=== PATIENT | male | born 1940 | race Caucasian/White ===

== ENCOUNTER → 2017-06-20 | Outpatient (CLI) | payer BC ==
[~2017-06-20] MED LIST: ASPI81TA28 PO; ATOR10TA82 PO; MULT-506 PO; OMEG10007 PO; OMEP20TA PO
[2017-06-20 09:54] LABS: ESTIMATED AVERAGE GLUCOSE 117 mg/dl; HA1C FLAG Normal (Normal)
[2017-06-20 10:02] LABS: ALT/SGPT 28 U/L (12-78); AST/SGOT 18 U/L (15-37); BLOOD UREA NITROGEN 16 mg/dl (7-18); BUN/CREATININE RATIO 16.4 (10-20); CALCIUM 8.8 mg/dl (8.5-10.1); CARBON DIOXIDE 27 mmol/L (21-32); CHLORIDE 105 mmol/L (98-107); CHOLESTEROL 158 mg/dl (0-200); CREATININE 0.95 mg/dl (0.60-1.40); GLUCOSE 91 mg/dl (70-99); SODIUM 141 mmol/L (136-145); TRIGLYCERIDES 55 mg/dl (0-150); VERY LOW DENSITY LIPOPROT CALC 11 mg/dl
[2017-06-20 10:07] LABS: CHOLESTEROL/HDL RATIO 3.4; HDL CHOLESTEROL 47 mg/dl; LDL CHOLESTEROL CALCULATED 100 mg/dl; PROSTATE SPECIFIC ANTIGEN 0.278 ng/ml (0.000-4.000)
== END | disposition home or self-care (01) ==
LOC: C.LAB1850 08:26
PROVIDERS: ATTEND Internal Medicine
DX: R73.01 Impaired fasting glucose (principal); E78.5 Hyperlipidemia, unspecified; Z12.5 Encounter for screening for malignant neoplasm of prostate

== ENCOUNTER 2017-11-08 12:03 | Emergency (ER) | payer BC ==
[~2017-11-08] VITALS: Ht 180.3 cm; Wt 79.0 kg
[2017-11-08 12:14] VITALS: TEMP 36.4; Ht 180.3 cm; Wt 79.0 kg
[2017-11-08] MEDS ORDERED: IBUP-103 PO (12:29)
--- NOTE | 2017-11-08 12:38 | DIAGNOSTIC IMAGING REPORT ---
L FOOT MIN 3 VIEWS ROUTINE CLINICAL HISTORY: 77 years-old Male presenting with L foot erythema and edema, lateral to 5th distal metatarsal. TECHNIQUE: Frontal, oblique, and lateral views of the left foot were obtained. COMPARISON: None. FINDINGS: Linear radiodensity immediately lateral to the fifth metatarsal head consistent with a retained foreign body. No acute osseous fracture or malalignment. Soft tissue swelling noted over the lateral aspect of the forefoot. No advanced degenerative changes. IMPRESSION: Retained foreign body at the site of clinical concern immediately lateral to the head of the fifth metatarsal. The report will be called/faxed according to standard departmental protocol. Electronically signed by: Marek Navas M.D. 11/08/2017 12:37 PM Dictated Date/Time: 11/08/2017 12:35 PM
[2017-11-08] MEDS ORDERED: LIDOCAINE/EPINEPHRINE 1% 20 ML VIAL INFIL STA (12:52)
[2017-11-08] MEDS ORDERED: DIPHTHERIA/TETANUS/PERTUSSIS 0.5 ML SYR/VIAL IM. ONE (13:00)
--- NOTE | 2017-11-08 13:53 | DIAGNOSTIC IMAGING REPORT ---
L FOOT MIN 3 VIEWS ROUTINE CLINICAL HISTORY: 77 years-old Male presenting with L foot foreign body, post removal. TECHNIQUE: Frontal, oblique, and lateral views the left foot were obtained. COMPARISON: Radiographs from earlier the same day. FINDINGS: Interval removal of the radiopaque foreign body at the head of the fifth metatarsal. No residual foreign body. No acute fracture or malalignment. No advanced degenerative change. No radiographic soft tissue abnormality. IMPRESSION: No residual foreign body at the head of the metatarsal. Electronically signed by: Marek Navas M.D. 11/08/2017 1:52 PM Dictated Date/Time: 11/08/2017 1:51 PM
[2017-11-08] MEDS ORDERED: CEPH500C PO (14:08)
--- NOTE | 2017-11-08 14:08 | EMERGENCY ROOM VISIT NOTE ---
ED Visit Note First contact with patient: 12:18 Patient was seen by our PA/PEDIATRIC PHYSICAL THERAPY ASSISTANT. I was involved in the patient's care and did evaluate the patient myself. I was involved in the care throughout the ER stay. The left foot foreign body was removed, the removal of the debris was confirmed by film. Antibiotics are indicated as there is some redness present at the insertion site. Patient is being discharged with outpatient follow-up.
--- NOTE | 2017-11-08 14:09 | EMERGENCY ROOM VISIT NOTE ---
History First contact with patient: 12:18 Chief Complaint: FOOT PAIN Stated Complaint: PAIN IN LEFT FOOT History of Present Illness The patient is a 77 year old male who presents to the Emergency Room via private vehicle accompanied by female with complaints of "pain in left foot". The patient states that he has had pain on the left lateral aspect of his distal foot for the past 2 days. He states that there is no injury he is aware of but there is no redness. He also notes slight swelling. He states that the only potential cause of this is he was grinding metal this past with a wire brush. He notes that he was wearing tennis shoes at that time. He rates the overall pain as a 7/10. He is unsure of his tetanus status. He denies any fevers or chills. Review of Systems A complete 6-point Review of Systems was discussed with the patient, with pertinent positives and negatives listed in the History of Present Illness. All remaining Review of Systems questions can be considered negative unless otherwise specified. Past Medical/Surgical History Medical Problems: (1) Hyperlipidemia Family History FHx: cancer FHx: heart disease Social History Smoking Status: Never Smoker Alcohol Use: occasionally Marital Status: Housing Status: lives with significant other Current/Historical Medications Scheduled Aspirin (Aspirin Ec), 81 MG PO QAM Atorvastatin (Lipitor), 10 MG PO QAM Cephalexin Monohydrate (Keflex), 500 MG PO TID Fish Oil ([place]-3), 1 CAP PO QAM Ibuprofen Tab (Advil), 200 MG PO UD Multivitamin (Multivitamin), 1 TAB PO QAM Omeprazole (Omeprazole), 20 MG PO QAM Physical Exam Vital Signs Date Time Temp Pulse Resp B/P (MAP) Pulse Ox O2 Delivery O2 Flow Rate FiO2 11/08/17 14:12 57 18 151/63 95 Room Air 11/08/17 12:14 36.4 66 16 138/76 99 Room Air Physical Exam VITAL SIGNS - Vital signs and nursing notes were reviewed. Stable. Afebrile. GENERAL -77-year-old male appearing his stated age who is in no acute distress. Communicates well with provider and answers questions appropriately. SKIN -there is distal left foot tenderness, erythema and edema on the lateral aspect. There is a small punctate center concerning for foreign body. Erythema is localized in a 4 cm in diameter region surrounding this likely foreign body area. EXTREMITIES -tenderness over the left lateral and distal foot. It is just lateral to the left fifth digit joint. +5/5 strength noted in UE/LE bilaterally. Medical Decision & Procedures ER Provider Diagnostic Interpretation: [~ rep ct add3]] L FOOT MIN 3 VIEWS ROUTINE CLINICAL HISTORY: 77 years-old Male presenting with L foot erythema and edema, lateral to 5th distal metatarsal. TECHNIQUE: Frontal, oblique, and lateral views of the left foot were obtained. COMPARISON: None. FINDINGS: Linear radiodensity immediately lateral to the fifth metatarsal head consistent with a retained foreign body. No acute osseous fracture or malalignment. Soft tissue swelling noted over the lateral aspect of the forefoot. No advanced degenerative changes. IMPRESSION: Retained foreign body at the site of clinical concern immediately lateral to the head of the fifth metatarsal. The report will be called/faxed according to standard departmental protocol. Electronically signed by: Marek Navas M.D. 11/08/2017 12:37 PM Dictated Date/Time: 11/08/2017 12:35 PM . L FOOT MIN 3 VIEWS ROUTINE CLINICAL HISTORY: 77 years-old Male presenting with L foot foreign body, post removal. TECHNIQUE: Frontal, oblique, and lateral views the left foot were obtained. COMPARISON: Radiographs from earlier the same day. FINDINGS: Interval removal of the radiopaque foreign body at the head of the fifth metatarsal. No residual foreign body. No acute fracture or malalignment. No advanced degenerative change. No radiographic soft tissue abnormality. IMPRESSION: No residual foreign body at the head of the metatarsal. Electronically signed by: Marek Navas M.D. 11/08/2017 1:52 PM Dictated Date/Time: 11/08/2017 1:51 PM Medications Administered Medications (Trade) Dose Ordered Sig/Brandi Route Start Time Stop Time Status Last Admin Dose Admin Diphtheria/ Pertussis/Tetanus Vacc (Adacel Inj) 0.5 ml ONCE ONCE IM. 11/08/17 13:00 11/08/17 13:01 DC 11/08/17 13:22 0.5 ML Medical Decision Patient was seen and evaluated as above in room D5. Review was performed of nursing notes and vital signs. After obtaining a thorough history and physical examination the above work up was performed. X-ray was obtained. Retained foreign body noted. Benefit versus risk was discussed with the patient. Region was prepped in the typical sterile fashion using Betadine. I then used the side of an 18-gauge beveled needle to gently debride away the callus region. I then struck a possible pocket which drained purulent material. It was yellow in nature. I then utilized forceps to remove the foreign body. The region was cleansed. Repeat x-ray reveals no retained foreign body. He will be placed on Keflex for the suspected cellulitic infection. He is to follow with the family doctor or return with worsening. Region was dressed with a bacitracin dressing. The patient was educated upon management, had questions answered prior to discharge, and was discharged home in good condition. Case was discussed with the attending physician who also personally evaluate the patient. I attest that I have personally reviewed the patient medication list. I attest that I have reviewed the patient's blood pressure and it was found to be elevated likely secondary to situation. In the evaluation and treatment of this patient the following differential diagnoses were entertained: Retained foreign body, cellulitis, abscess, among others. Impression Primary Impression: Foreign body in foot Additional Impression: Cellulitis Departure Information Dispostion Home / Self-Care Condition GOOD Prescriptions Cephalexin Monohydrate (Keflex) 500 Mg Cap 500 MG PO TID for 7 Days, #21 CAP Prov: Sung Zuleta PA-C 11/08/17 Referrals Pro,Jaime Whitman M.D. (PCP) Patient Instructions My [facility] Additional Instructions You were seen in the emergency department for a retained foreign body in your left foot. This was removed. Please take Keflex 1 tablet every 8 hours for 7 days. This is to help the infection. Please return with any new/concerning symptoms. Please call your family doctor to schedule follow-up to evaluate your infection. Please keep the area covered with antibiotic ointment for the next few days. Problem Qualifiers Primary Impression: Foreign body in foot Laterality: left
[2017-11-08 14:12] VITALS: BP 151/63; PULSE 57; O2SAT 95
[2017-11-09] MEDS ORDERED: DOXY-300 PO (15:14)
== END 2017-11-08 14:18 | disposition home or self-care (01) ==
LOC: C.EDB 12:05 → C.EDD 14:18
DX: S91.342A Puncture wound with foreign body, left foot, initial encounter (principal); L03.116 Cellulitis of left lower limb; W45.8XXA Other foreign body or object entering through skin, initial encounter; Y92.9 Unspecified place or not applicable; E78.5 Hyperlipidemia, unspecified; Z80.9 Family history of malignant neoplasm, unspecified; Z82.49 Family history of ischemic heart disease and other diseases of the circulatory system; Z79.82 Long term (current) use of aspirin; Z79.899 Other long term (current) drug therapy

== ENCOUNTER 2017-11-09 14:08 | Emergency (ER) | payer BC ==
[~2017-11-09] VITALS: Ht 180.3 cm; Wt 81.0 kg
[~2017-11-09 14:08] MED LIST changes: +CEPH500C PO; +IBUP-103 PO
[2017-11-09 14:10] VITALS: TEMP 36.5; Ht 180.3 cm; Wt 81.0 kg
--- NOTE | 2017-11-09 15:10 | EMERGENCY ROOM VISIT NOTE ---
ED Visit Note First contact with patient: 14:21 Patient was seen by our PA/SUPERVISOR DUMPING. I was involved in the patient's care and did evaluate the patient myself. I was involved in the care throughout the ER stay. The patient presents today for a wound recheck. The redness has spread, no fever or systemic symptoms. He is going to receive a dose of Rocephin and then will have an additional antibiotic, doxycycline, added. He will have the foot rechecked again in 24 hours.
[2017-11-09] MEDS ORDERED: DOXY-300 PO (15:14)
[2017-11-09] MEDS ORDERED: CEFTRIAXONE SOD 350MG/ML 1 GM VIAL IM STA (15:15)
--- NOTE | 2017-11-09 15:18 | EMERGENCY ROOM VISIT NOTE ---
History First contact with patient: 14:21 Chief Complaint: WOUND RECHECK Stated Complaint: WOUND RECHECK LEFT FOOT Nursing Triage Summary: here for wound recheck on foot after having wire removed History of Present Illness The patient is a 77 year old male who presents to the Emergency Room via private vehicle with complaints of "will recheck left foot". The patient states that he was seen here yesterday and had the wire taken out of his foot. He states that now the redness is worse but the pain is less. He rates the overall pain as a 4/10. He has been taking the Keflex. He notes he took 2 doses yesterday and 1 dose this morning. He denies any fevers, chills or any other complaints. He notes he has been trying to limit weightbearing on the left foot but is ambulating as necessary. Review of Systems A complete 6-point Review of Systems was discussed with the patient, with pertinent positives and negatives listed in the History of Present Illness. All remaining Review of Systems questions can be considered negative unless otherwise specified. Past Medical/Surgical History Medical Problems: (1) Hyperlipidemia Family History FHx: cancer FHx: heart disease Social History Smoking Status: Never Smoker Alcohol Use: occasionally Marital Status: Housing Status: lives with significant other Current/Historical Medications Scheduled Aspirin (Aspirin Ec), 81 MG PO QAM Atorvastatin (Lipitor), 10 MG PO QAM Cephalexin Monohydrate (Keflex), 500 MG PO TID Doxycycline (Monohydrate) (Doxycycline), 100 MG PO BID Fish Oil ([place]-3), 1 CAP PO QAM Ibuprofen Tab (Advil), 200 MG PO UD Multivitamin (Multivitamin), 1 TAB PO QAM Omeprazole (Omeprazole), 20 MG PO QAM Physical Exam Vital Signs Date Time Temp Pulse Resp B/P (MAP) Pulse Ox O2 Delivery O2 Flow Rate FiO2 11/09/17 15:41 56 20 166/77 97 11/09/17 14:10 36.5 68 16 143/72 97 Physical Exam VITAL SIGNS - Vital signs and nursing notes were reviewed. Stable. Afebrile. GENERAL -77-year-old male appearing his stated age who is in no acute distress. Communicates well with provider and answers questions appropriately. SKIN -there is extending erythema overlying the distal left lateral area of the patient's left foot. This has now progressed to the left half of the anterior foot. No lymphangitic streaking. No drainage. No fluctuance. EXTREMITIES - No clubbing or peripheral cyanosis. Skin changes as above. Minimal tenderness. No bony deformity. Full range of motion. He is neurovascularly intact in left lower extremity. Medical Decision & Procedures Medications Administered Medications (Trade) Dose Ordered Sig/Brandi Route Start Time Stop Time Status Last Admin Dose Admin Ceftriaxone Sodium (Rocephin Im) 1,000 mg NOW STAT IM 11/09/17 15:15 11/09/17 15:16 DC 11/09/17 15:28 1,000 MG Medical Decision Patient was seen and evaluated as above in room D5. Review was performed of nursing notes and vital signs. After obtaining a thorough history and physical examination it was evident that the patient was experiencing worsening cellulitis. There is no fluctuance or evidence of abscess. The region where the wire was removed by myself yesterday is improving. I suspect that the patient has not had enough time for the antibiotic take effect, but to be cautious he will be given 1 g of Rocephin here IM, and doxycycline added for additional micro-coverage. He is to have this rechecked tomorrow. This is either going to be here or with the family doctor. At this time I believe outpatient management is still appropriate. He was educated upon worrisome symptoms which to return. The patient was educated upon management, had questions answered prior to discharge, and was discharged home in good condition. Case was discussed with the attending physician who also personally evaluate the patient.. I attest that I have personally reviewed the patient medication list. I attest that I have reviewed the patient's blood pressure and it was found to be elevated likely secondary to situation. He is to follow with the family doctor for wound recheck. In the evaluation and treatment of this patient the following differential diagnoses were entertained: Worsening cellulitis, sepsis, retained foreign body , among others. Impression Primary Impression: Encounter for wound re-check Additional Impression: Cellulitis Departure Information Dispostion Home / Self-Care Condition GOOD Prescriptions Doxycycline (Monohydrate) (Doxycycline) 100 Mg Cap 100 MG PO BID for 10 Days, #20 TABS Prov: Sung Zuleta PA-C 11/09/17 Referrals Jaime Luna M.D. (PCP) Patient Instructions My [facility] Additional Instructions You were seen in the emergency department for an infection of your left foot. At this time I recommend continuing the first antibiotic which is Keflex. You received an injection here of another antibiotic. You have been prescribed Doxycycline to be taken as prescribed. This is a second antibiotic. Please take this with the first. All antibiotics have the potential to cause diarrhea. Stop this medication and contact a medical provider if you were to develop any significant adverse side effects including: wheezing, shortness of breath, passing out, vomiting, or a diffuse rash. Always take antibiotics as directed and COMPLETE the ENTIRE course regardless of the improvement of your symptoms. Protect yourself with sunscreen while on this antibiotic as it increases your skin's sensitivity to the light and cause bad sunburns. In addition, you should be sure to take this pill after eating. Make sure the pill is completely swallowed as this medication can cause irritation to the lining of the esophagus. Do NOT drink milk or eat anything with large amounts of Calcium in them 1 hour prior to taking this medication as this will decrease the effectiveness of the medication. Please call the family doctor to schedule follow-up for wound recheck tomorrow. (Dr. Luna) If you are unable to be seen by them please return here for reevaluation. Please return with any new/concerning symptoms Problem Qualifiers
[2017-11-09 15:41] VITALS: BP 166/77; PULSE 56; O2SAT 97
== END 2017-11-09 15:46 | disposition home or self-care (01) ==
LOC: C.EDB 14:08 → C.EDD 15:46
DX: L03.116 Cellulitis of left lower limb (principal); E78.5 Hyperlipidemia, unspecified

== ENCOUNTER 2024-06-17 14:17 | Observation (INO) ==
--- NOTE | 2024-06-17 14:23 | Emergency Department Note ---
Impression & Plan Bradycardia, Dizziness, Nausea & vomiting, Heart block AV second degree ED Provider Note NAME: BRETT SCHWARTZ AGE: 83 SEX: M : 1940 ARRIVES VIA: Ambulance INFORMANT: Patient, ED PROVIDER(S): Suresh Pittman MD CHIEF COMPLAINT: Dizziness, headache, vomiting MEDICAL DECISION MAKING: Patient presents due to concern for nausea vomiting and dizziness. Patient states that he had gait and balance issues but denies any vertigo or spinning. Patient did have a CT of the head and CT angiography of the head and neck performed given the patient's reported difficulty with ambulation. IV was established and blood work was obtained patient was given meclizine as well as IV fluids. Patient still had significant vomiting and the patient was ordered IV Compazine. During the time of his vomiting the patient reportedly had bradycardia into the 20s. Patient had improvement in his heart rate. Review of his prior records shows the patient has been bradycardic in the past. The patient does not take anything for rate control. Patient did get a CAT scan but upon being laid down patient reportedly had associated bradycardia and subsequent nausea and vomiting. Patient was brought back here and I did speak with the on-call hat finisher Dr. Day. Atropine initially ordered but held. On reevaluation of the patient the patient states that he has not had any vertiginous symptoms feels well currently at the bedside. Will defer any CT head or CT angiography of the head and neck as I am concerned that the patient's symptoms of his gait issues are secondary to his nausea vomiting as well as bradycardia. Pacer pads were placed on the patient. The patient does not complain of any vertigo. The patient has good [id number] and no drift of any extremity good [id number]. Subsequently did speak the on-call hospitalist service after discussing patient's case with Dr. Mooney and the patient was admitted by Dr. Thomas. Discussion w/ other healthcare providers: Dr. Mooney cardiology Dr. Thomas inpatient medicine service Prior /Outside records reviewed: I reviewed a part of her primary care visit note from April 07, [address] Luna history of hyperlipidemia bradycardia reflux impaired fasting glucose inguinal hernia. Reported stable bradycardia in the 50s without symptoms. Differential diagnosis: Benign positional vertigo, dehydration, hypovolemia, anemia, infection, hypoglycemia, electrolyte abnormalities, arrhythmia, tox among others were considered. Diagnostics, as interpreted by me: ECG: Sinus bradycardia rate of 53, first-degree AV block prolonged MI, normal axis T wave inversion in aVL no ST elevations. Rhythm strip reviewed and interpreted concern for second-degree heart block Repeat EKG interpreted by myself Sinus bradycardia with first-degree AV block rate of 43 prolonged MI normal QRS duration normal axis no ST elevations. Cardiac monitoring: An order was placed for continuous cardiac monitoring. The monitor shows a rate of 53 with sinus rhythm. Patient was placed on pulse oximetry Medical decision rules: None Imaging studies: I informally interpreted the patient's chest x-ray does not show obvious pneumonia or pneumothorax with formal report to follow. HPI: Patient presents due to concern for lightheadedness and gait and balance issues. Patient states that he was nearing some wood that he was in a put on theof a car. The patient denies any fume exposure. Patient states that he had a little bit of headache and some associated nausea and vomiting. Patient denies any spinning feeling sensation or vertigo but states that he was lightheaded and had difficulty with walking to where he had to hold onto things for balance. Patient denies any falls or trauma. He did receive Zofran around with mild improvement in symptoms. He only has a very mild headache currently. Patient takes baby aspirin but no other blood thinners. Patient denies any recent changes in elevation or hearing loss no tinnitus. Patient denies any numbness tingling or focal weakness and no prior history of stroke or mini stroke. PAST MEDICAL HISTORY: See Below PAST SURGICAL HISTORY: See Below SOCIAL HISTORY: See Below HOME MEDICATIONS: See Below ALLERGIES: See Below VITALS: See Below PHYSICAL EXAMINATION: GENERAL: NAD, non-toxic. EYE EXAM: Normal conjunctiva. PERRL, no anisocoria and EOM's grossly intact w/o pain. No nystagmus noted. OROPHARYNX: Moist mucus membranes, grossly normal dentition. NECK: Trachea midline, no stridor. Supple, no nuchal rigidity, no adenopathy, non-tender. No signs of meningismus. FROM of the neck with good chin to chest and neck extension. LUNGS: Clear to auscultation. Normal chest wall mechanics. HEART: NSR, no MRG. ABDOMEN: Abdomen soft, non-tender, no masses, no rebound or guarding. BACK: No CVA TTP. SKIN: No rashes and no bruising. UPPER EXTREMITIES: Upper extremities are grossly normal. LOWER EXTREMITIES: Grossly normal, no edema. NEURO EXAM: A&O x3, cranial nerves II-XII grossly intact, normal speech, moves all 4 extremities. Good [id number], no drift no sensory deficits. Past Med/Surg History Problem List (Updated 06/17/24 @ 21:13 by Suresh Pittman MD) Ambulatory dysfunction First degree AV block Nausea & vomiting (Acute) Dizziness (Acute) Heart block AV second degree (Acute) Dysequilibrium H/O right inguinal hernia repair (04/17/23) Right Open Inguinal Hernia Repair with Mesh(Right) - Chau Victor, Hypertension stable per PCP; low sodium diet and pt monitoring BP Prediabetes pt monitoring diet; Ha1c 01/21/23: 5.6% Current use of proton pump inhibitor Inguinal hernia Inguinal bulge Pain, abdominal, RLQ Hernia Cerumen impaction Skin lesion Sensorineural hearing loss (SNHL) of left ear with restricted hearing of right ear Colon cancer screening Encounter for pre-operative examination Impaired fasting glucose (Acute) Laryngopharyngeal reflux (Acute) Bradycardia (Acute) runs 50s-60s per pt ; stable per PCP: 03/2023 EKG first degree AV block without changes Hyperlipidemia stable on statin per PCP Medical History Hx of syncope x 2 occurrences; most recent episdoe 11/2018; workup wnl per pt ([facility]), no current issues since 2019 Hearing loss "Age related" Hypertension Pt Denies - "never had a significantly high BP" Hyperlipidemia Bradycardia "Sometimes drops to 50's." Does not follow with cardio History of COVID-22 Mar 2022: mild. 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 pt declines neuro referral. 02/2022 doppler: Carotids <50% stenosis b/l ICA GERD (gastroesophageal reflux disease) stable on omeprazole Surgical History History of right cataract surgery History of left cataract surgery 02/25/24 Hx of right inguinal hernia repair 2022 History of tonsillectomy Youth History of appendectomy Youth History of colonoscopy 2020 Family History Father , age 63 Myocardial infarction Brother Melanoma Lung cancer Brother Lung cancer Other Family history non-contributory No family history of adverse response to anesthesia Denies family history of Ovarian cancer Prostate cancer Breast cancer Colorectal cancer Social History Smoking Status: Never smoker Second Hand Exposure: No; Do You Dip or Chew Tobacco: No; Hx Alcohol Use: Yes Alcohol type: beer and wine Alcohol Intake Frequency: 4 or More x per/Week Hx Substance Use: No Preferred Language: Azerbaijani Communication Ability: Effective Visual Impairment: No Limitations Hearing Ability: Normal Sheep Or Calf Grader Required: No Beliefs That Will Affect Care: None marital status: Current Living Situation: Spouse current occupational status: retired How many Children do You have: 2 Feels Safe at Home: Yes Childhood Exposure to Second-Hand Smoke: Yes Diet: regular caffeine: Yes Dental Care, Regularly: Yes Physical Activity Frequency: Does not Exercise Seatbelt Use: always Sunscreen Use: No Assistive Devices: Glasses Allergies Allergies Allergy/AdvReac Type Severity Reaction Status Date / Time Penicillins Allergy Unknown UNKNOWN Verified 04/07/24 14:38 Home Meds Home Medications Medication Instructions Recorded Confirmed aspirin 81 mg tablet,delayed 81 mg PO QAM 11/22/20 06/17/24 release (Adult Low Dose Aspirin) multivitamin 1 tab PO QAM 11/22/20 06/17/24 omeprazole 20 mg capsule,delayed 20 mg PO QAM 11/22/20 06/17/24 release omega 0-xfz-bmz-fish oil 1,000 mg 1 cap PO QAM 06/17/24 06/17/24 (120 mg-180 mg) capsule (Fish Oil) Previous Rx's Medication Instructions Recorded atorvastatin 10 mg tablet (Lipitor) 10 mg PO QAM #90 tabs 06/04/24 Results & Data (ED) Vital Signs Vital Signs - 24 hr 06/17/24 14:23 06/17/24 14:29 06/17/24 14:30 Temperature 36.2 C L Temperature Source Oral Pulse Rate 48 L 47 L Pulse Rate [Apical] Pulse Rate from SpO2 Sensor Pulse Rhythm Regular Pulse Strength Normal Respiratory Rate 20 Respiratory Effort / Characteristics Non-Labored Spontaneous Respiratory Depth Normal Respiratory Pattern Regular Blood Pressure 184/80 H 173/80 H Blood Pressure [Right Arm] Blood Pressure Mean 114 125 Blood Pressure Mean [Right Arm] Blood Pressure Position Lying Pulse Oximetry 97 Oxygen Delivery Method Room Air Sepsis Recent Fever Within 48 Hours No Sepsis New/Unexplained Change in Mental Status N/A Sepsis Action Taken by Nursing No Action Required 06/17/24 14:36 06/17/24 14:39 06/17/24 14:40 Temperature Temperature Source Pulse Rate 46 L 45 L 25 L Pulse Rate [Apical] Pulse Rate from SpO2 Sensor 47 L 48 L Pulse Rhythm Pulse Strength Respiratory Rate 17 15 Respiratory Effort / Characteristics Respiratory Depth Respiratory Pattern Blood Pressure Blood Pressure [Right Arm] Blood Pressure Mean Blood Pressure Mean [Right Arm] Blood Pressure Position Pulse Oximetry 96 96 Oxygen Delivery Method Room Air Sepsis Recent Fever Within 48 Hours Sepsis New/Unexplained Change in Mental Status Sepsis Action Taken by Nursing 06/17/24 14:43 06/17/24 14:44 06/17/24 14:45 Temperature Temperature Source Pulse Rate 74 Pulse Rate [Apical] Pulse Rate from SpO2 Sensor Pulse Rhythm Pulse Strength Respiratory Rate Respiratory Effort / Characteristics Respiratory Depth Respiratory Pattern Blood Pressure 231/95 H 189/89 H Blood Pressure [Right Arm] Blood Pressure Mean 120 120 Blood Pressure Mean [Right Arm] Blood Pressure Position Pulse Oximetry Oxygen Delivery Method Sepsis Recent Fever Within 48 Hours Sepsis New/Unexplained Change in Mental Status Sepsis Action Taken by Nursing 06/17/24 14:51 06/17/24 14:56 06/17/24 14:57 Temperature Temperature Source Pulse Rate 60 53 L 47 L Pulse Rate [Apical] Pulse Rate from SpO2 Sensor 60 49 L Pulse Rhythm Pulse Strength Respiratory Rate 16 16 Respiratory Effort / Characteristics Respiratory Depth Respiratory Pattern Blood Pressure Blood Pressure [Right Arm] Blood Pressure Mean Blood Pressure Mean [Right Arm] Blood Pressure Position Pulse Oximetry 96 96 96 Oxygen Delivery Method Room Air Room Air Room Air Sepsis Recent Fever Within 48 Hours Sepsis New/Unexplained Change in Mental Status Sepsis Action Taken by Nursing 06/17/24 15:00 06/17/24 15:06 06/17/24 15:09 Temperature Temperature Source Pulse Rate 47 L Pulse Rate [Apical] 47 L Pulse Rate from SpO2 Sensor 47 L Pulse Rhythm Pulse Strength Respiratory Rate 16 18 Respiratory Effort / Characteristics Respiratory Depth Respiratory Pattern Blood Pressure 165/74 H Blood Pressure [Right Arm] 165/74 H Blood Pressure Mean 114 Blood Pressure Mean [Right Arm] 104 Blood Pressure Position Pulse Oximetry 96 96 Oxygen Delivery Method Room Air Room Air Sepsis Recent Fever Within 48 Hours Sepsis New/Unexplained Change in Mental Status Sepsis Action Taken by Nursing 06/17/24 15:18 06/17/24 16:00 06/17/24 16:06 Temperature Temperature Source Pulse Rate 42 L 46 L Pulse Rate [Apical] Pulse Rate from SpO2 Sensor 42 L 45 L Pulse Rhythm Pulse Strength Respiratory Rate 15 10 L Respiratory Effort / Characteristics Respiratory Depth Respiratory Pattern Blood Pressure 157/71 H Blood Pressure [Right Arm] Blood Pressure Mean 84 Blood Pressure Mean [Right Arm] Blood Pressure Position Pulse Oximetry 95 96 Oxygen Delivery Method Room Air Room Air Sepsis Recent Fever Within 48 Hours Sepsis New/Unexplained Change in Mental Status Sepsis Action Taken by Nursing 06/17/24 16:12 06/17/24 16:24 06/17/24 17:00 Temperature Temperature Source Pulse Rate 42 L 43 L Pulse Rate [Apical] 43 L Pulse Rate from SpO2 Sensor 43 L 43 L Pulse Rhythm Pulse Strength Respiratory Rate 15 22 16 Respiratory Effort / Characteristics Non-Labored Spontaneous Respiratory Depth Normal Respiratory Pattern Regular Blood Pressure Blood Pressure [Right Arm] 196/82 H Blood Pressure Mean Blood Pressure Mean [Right Arm] 120 Blood Pressure Position Pulse Oximetry 95 95 98 Oxygen Delivery Method Room Air Sepsis Recent Fever Within 48 Hours Sepsis New/Unexplained Change in Mental Status Sepsis Action Taken by Nursing 06/17/24 18:13 06/17/24 19:00 Temperature Temperature Source Pulse Rate 49 L Pulse Rate [Apical] 44 L Pulse Rate from SpO2 Sensor Pulse Rhythm Pulse Strength Respiratory Rate 17 Respiratory Effort / Characteristics Non-Labored Spontaneous Respiratory Depth Normal Respiratory Pattern Regular Blood Pressure Blood Pressure [Right Arm] 171/77 H Blood Pressure Mean Blood Pressure Mean [Right Arm] 108 Blood Pressure Position Pulse Oximetry 96 Oxygen Delivery Method Room Air Sepsis Recent Fever Within 48 Hours Sepsis New/Unexplained Change in Mental Status Sepsis Action Taken by Alf Medications Current Medication List: was personally reviewed by me Laboratory Data Attestation: I reviewed the patient's lab results. 06/17/24 14:30 06/17/24 14:30 Lab Results 06/17/24 Range/Units 14:30 WBC 6.80 (4.8-10.8) K/ul RBC 4.93 (4.70-6.10) M/uL Hgb 16.0 (14.0-18.0) g/dl Hct 46.0 (42.0-52.0) % MCV 93.3 (80.0-100.0) fL MCH 32.5 (25.0-34.0) pg MCHC 34.8 (32.0-36.0) g/dL RDW Std Deviation 43.0 (36.4-46.3) fL RDW Coeff of Tony 12.5 (11.5-14.5) % Plt Count 286 (130-400) K/uL MPV 9.8 (9.4-12.4) fL Immature Gran % (Auto) 0.7 % Neut % (Auto) 75.7 % Lymph % (Auto) 16.9 % [place] % (Auto) 5.4 % Eos % (Auto) 0.9 % Baso % (Auto) 0.4 % Neut # (Auto) 5.14 (1.40-6.50) K/uL Lymph # (Auto) 1.15 L (1.20-3.40) K/uL Bladen # (Auto) 0.37 (0.11-0.59) K/uL Eos # (Auto) 0.06 (0.00-0.50) K/uL Baso # (Auto) 0.03 (0.00-0.20) K/uL Immature Gran # (Auto) 0.05 (0.01-0.20) K/uL Sodium 140 (136-145) mmol/L Potassium 4.4 (3.5-5.1) mmol/L Chloride 106 (98-107) mmol/L Carbon Dioxide 25 (21-32) mmol/L Anion Gap 9 (3-11) BUN 12 (6-23) mg/dl Creatinine 1.00 (0.6-1.4) mg/dl Est Cr Clr Drug Dosing 58.8 ml/min eGFR 75.14 BUN/Creatinine Ratio 12.0 (10-20) Glucose 184 H (70-99(Fasting)) mg/dl Calcium 9.5 (8.6-10.3) mg/dl Total Bilirubin 0.5 (0.2-1.0) mg/dl AST 28 (13-39) U/L ALT 36 (7-52) U/L Alkaline Phosphatase 86 (34-104) U/L Troponin I High Sens 3.9 (0-20) pg/ml Total Protein 6.8 (6.0-8.3) gm/dl Albumin 4.2 (3.4-5.0) gm/dl Globulin 2.6 (2.5-4.0) gm/dl Albumin/Globulin Ratio 1.6 (0.9-2) Lyme Disease Screen Negative (Negative) Administered Medications Discontinued Medications Acetaminophen (Acetaminophen 1000 Mg/100 Ml Iv) 1,000 mg IV NOW STA Stop: 06/17/24 14:28 Last Admin: 06/17/24 14:45 Dose: 1,000 mg Documented By: DOUGLAS Atropine Sulfate (Atropine Sulfate 0.1 Mg/Ml 10ml Syr) 0.5 mg IV NOW STA Stop: 06/17/24 15:48 Last Admin: 06/17/24 16:33 Dose: Not Given Documented By: MAUREEN Sodium Chloride (Nss) 500 mls @ 999 mls/hr IV .Q31M ONE Stop: 06/17/24 14:57 Last Infusion: 06/17/24 15:16 Dose: Infused Documented By: Admin: 06/17/24 14:44 Dose: 999 mls/hr Documented By: DOUGLAS Prochlorperazine (Compazine) 1 mls @ 1 mls/min IV ONE ONE Stop: 06/17/24 14:52 Last Admin: 06/17/24 15:01 Dose: 1 mls/min Documented By: DOUGLAS Famotidine (Pepcid 20mg Iv Push) 20 mg in 5 mls @ 2.5 mls/min IV NOW STA Stop: 06/17/24 14:52 Last Admin: 06/17/24 15:02 Dose: 2.5 mls/min Documented By: DOUGLAS Meclizine HCl (Meclizine Hcl 25 Mg Tab) 25 mg PO NOW STA Stop: 06/17/24 14:28 Last Admin: 06/17/24 15:20 Dose: 25 mg Documented By: MAUREEN Imaging Data Radiologist's Impression: Chest X-Ray 06/17/24 17:24 Clinical History: Presyncope Technique: 2 frontal views of the chest were obtained Comparison is made to the prior examination dated 11/23/2018 Findings: There are no confluent pulmonary infiltrates. The heart size is within normal limits. No pleural effusion or pneumothorax is seen. There is no definite pulmonary nodule. No fracture is noted. No foreign body is seen Impression: No active disease Electronically signed by Mars Fleming 06-17-2024 6:19 PM Discharge Plan Visit Data Chief Complaint: Flu Like Symptoms Stated Complaint: DIZZINESS, NAUSEA, VOMITING, LIGHT HEADED ED Provider: Suresh Pittman Discharge Problem: Bradycardia, Dizziness, Nausea & vomiting, Heart block AV second degree Forms Stand Alone Forms: [employer] [facility] [employer] Prescriptions Prescriptions: No Action atorvastatin [Lipitor] 10 mg tablet 10 mg PO QAM Qty: 90 3RF multivitamin Tablet 1 tab PO QAM aspirin [Adult Low Dose Aspirin] 81 mg tablet,delayed release (DR/EC) 81 mg PO QAM omeprazole 20 mg capsule,delayed release(DR/EC) 20 mg PO QAM omega 5-qci-rdu-fish oil [Fish Oil] 1,000 (120-180) mg Capsule 1 cap PO QAM Referrals Referrals: ,Jaime Whitman MD [Primary Care Provider] - Discharge Problem: Nausea & vomiting Qualifiers: Vomiting type: unspecified Qualified Code(s): R11.2 - Nausea with vomiting, unspecified
[2024-06-17] MEDS: SODIUM CHLORIDE 0.9% 500 ML IV ONE (14:44)
[2024-06-17] MEDS: ACETAMINOPHEN 1000 MG/100 ML IV IV STA (14:45)
[2024-06-17 14:52] LABS: Basophils # (auto) 0.03 K/uL (0.00-0.20); Basophils % (auto) 0.4 %; Eosinophils # (auto) 0.06 K/uL (0.00-0.50); Eosinophils % (auto) 0.9 %; Immature Granulocytes # (auto) 0.05 K/uL (0.01-0.20); Immature Granulocytes % (auto) 0.7 %; Lymphocytes # (auto) 1.15 K/uL (1.20-3.40); Lymphocytes % (auto) 16.9 %; Mean Corpuscular Hemoglobin 32.5 pg (25.0-34.0); Mean Corpuscular Hgb Conc 34.8 g/dL (32.0-36.0); Mean Corpuscular Volume 93.3 fL (80.0-100.0); Mean Platelet Volume 9.8 fL (9.4-12.4); Monocytes # (auto) 0.37 K/uL (0.11-0.59); Monocytes % (auto) 5.4 %; Neutrophils # (auto) 5.14 K/uL (1.40-6.50); Neutrophils % (auto) 75.7 %; Platelet Count 286 K/uL (130-400); RDW Coefficient of Variation 12.5 % (11.5-14.5); Red Blood Count 4.93 M/uL (4.70-6.10)
[2024-06-17] MEDS: PROCHLORPERAZINE 1 ML IV ONE (15:01)
[2024-06-17] MEDS: FAMOTIDINE 20MG IV PUSH 20 MG/5 ML SYR IV STA (15:02)
[2024-06-17 15:11] LABS: Albumin Globulin Ratio 1.6 (0.9-2); Albumin Level 4.2 gm/dl (3.4-5.0); Bilirubin,Total 0.5 mg/dl (0.2-1.0); Calcium 9.5 mg/dl (8.6-10.3); Creatinine Clr Calc Pharmacy 58.8 ml/min; Globulin 2.6 gm/dl (2.5-4.0); Potassium 4.4 mmol/L (3.5-5.1); Total Protein 6.8 gm/dl (6.0-8.3)
[2024-06-17] MEDS: MECLIZINE HCL 25 MG TAB PO STA (15:20)
[2024-06-17 15:42] LABS: Troponin I High Sensitivity 3.9 pg/ml (0-20)
[2024-06-17] MEDS: ATROPINE SULFATE 0.1 MG/ML 10ML SYR IV STA (16:33)
--- NOTE | 2024-06-17 17:40 | Cardiology Consultation ---
Date of Consultation June 17, 2024 Assessment & Plan (1) Dysequilibrium: (2) Bradycardia: (3) Heart block AV second degree: Plan 83-year-old man with history of chronic mild sinus bradycardia over many years who developed abrupt onset disequilibrium without overt vertigo, subsequently had transient high-grade heart block with pauses in the context of nausea and vomiting. Although his gastrointestinal symptoms could have been due to hypotension from pauses/heart block, more likely he developed gastrointestinal symptoms which resulted in vasovagal stimulation and transient heart block. He has an unexplained sense of disequilibrium which can be reproduced when he sits up and which appears independent of his hemodynamics (heart rate and blood pressure are unchanged). Etiology of the disequilibrium is uncertain, could be a type of labyrinthitis without vertigo or could represent CINDER MAN phenomenon such as a cerebrovascular accident. Although his primary symptoms of disequilibrium and nausea do not seem to be explained by altered hemodynamics from bradycardia/pauses, he certainly does have some degree of conduction disease and limited reserve for any pauses or worsening bradycardia, even if they are vasovagal in nature. Since he appears hemodynamically stable currently, would keep at bedrest with pacer pads placed, no immediate need for transvenous pacing or atropine. However, if he develops recurrent severe bradycardia/pauses/heart block, particular outside the context of disequilibrium/GI symptoms, urgent transvenous pacing may be necessary. No chest pain, troponin normal, at this point no evidence of myocardial ischemia. Dr. Ghosh will be evaluating the patient in the morning, depending upon telemetry results and symptoms overnight, determination can be made as to whether he might ultimately require a permanent pacemaker. History of Present Illness Reason for Consultation: Bradycardia/heart block Requesting Physician: Suresh Pittman MD Attending Physician: Suresh Pittman MD History of Present Illness 83-year-old generally healthy man with chronic sinus bradycardia, no other cardiac history, who noted abrupt onset of disequilibrium while working in his basement earlier today and later demonstrated transient heart block while in the ER. For at least the past 5 years he has had a marked sinus bradycardia with rates in the 48-60 bpm range. He did have 1 episode of presumed vasovagal syncope at dinner several years ago, subsequent workup was unrevealing. He felt well until earlier today when he abruptly developed disequilibrium. He noted a mild headache, persistent difficulty standing and walking, and subseq uently had nausea and vomiting. He denies any true vertigo. While in the emergency department, he had several episodes of profound bradycardia with some degree of heart block simultaneous with nausea and vomiting. Baseline telemetry in the ER showed sinus bradycardia in the 40-45 bpm range, he transiently had ventricular pauses of up to 3-4 seconds with P waves marching through but no change in the QRS duration or morphology, suggesting high-grade second-degree AV block. At the time of my evaluation, he was comfortable lying flat, but developed nonspecific dizziness without vertigo whenever he sat up. His heart rate is consistently 45 bpm lying or seated, SBP obtained manually was 110 mmHg and was unchanged with him sitting up and developing dizziness symptoms. No chest pain, dyspnea, actual syncope, or palpitations. He no longer notes nausea. Allergies Allergy/AdvReac Type Severity Reaction Status Date / Time Penicillins Allergy Unknown UNKNOWN Verified 04/07/24 14:38 Home Medications Medication Instructions Recorded Confirmed Type aspirin 81 mg tablet,delayed 81 mg PO QAM 11/22/20 06/17/24 History release (Adult Low Dose Aspirin) multivitamin 1 tab PO QAM 11/22/20 06/17/24 History omeprazole 20 mg capsule,delayed 20 mg PO QAM 11/22/20 06/17/24 History release atorvastatin 10 mg tablet (Lipitor) 10 mg PO QAM #90 tabs 06/04/24 06/17/24 Rx omega 1-ttj-axa-fish oil 1,000 mg 1 cap PO QAM 06/17/24 06/17/24 History (120 mg-180 mg) capsule (Fish Oil) Patient History Medical History Hx of syncope x 2 occurrences; most recent episdoe 11/2018; workup wnl per pt ([facility]), no current issues since 2019 Hearing loss "Age related" Hypertension Pt Denies - "never had a significantly high BP" Hyperlipidemia Bradycardia "Sometimes drops to 50's." Does not follow with cardio History of COVID-22 Mar 2022: mild. 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 pt declines neuro referral. 02/2022 doppler: Carotids <50% stenosis b/l ICA GERD (gastroesophageal reflux disease) stable on omeprazole Surgical History History of right cataract surgery History of left cataract surgery 02/25/24 Hx of right inguinal hernia repair 2022 History of tonsillectomy Youth History of appendectomy Youth History of colonoscopy 2020 Family History Father , age 63 Myocardial infarction Brother Melanoma Lung cancer Brother Lung cancer Other Family history non-contributory No family history of adverse response to anesthesia Denies family history of Ovarian cancer Prostate cancer Breast cancer Colorectal cancer Social History Smoking Status: Never smoker Second Hand Exposure: No; Do You Dip or Chew Tobacco: No; Hx Alcohol Use: Yes Alcohol type: beer and wine Alcohol Intake Frequency: 4 or More x per/Week Hx Substance Use: No Preferred Language: Maltese Communication Ability: Effective Visual Impairment: No Limitations Hearing Ability: Normal 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 BP by MD 110/80 mmHg supine, no orthostatic change sitting up (dizziness noted). Did not attempt standing BP due to disequilibrium. Pulse 45 bpm and regular. Respirations 16 and unlabored. Skin: no ecchymoses or generalized lesions. HEENT: unremarkable. Neck: JVP at the clavicle at 90 degrees, no carotid bruits. Lungs: clear. Cardiac: regular/bradycardic rhythm, normal S1-2, no murmur. Abdomen: benign. Extremities: no edema, pulses intact. Neurologic: normal affect and conversation, nonfocal. Results & Data Laboratory Results Normal CBC. Normal electrolytes, BUN 12, creatinine 1.0. Lyme disease serology negative. Troponin 3.9. Diagnostic Findings Telemetry as noted in HPI. PG Care Time/CCT Total # of Minutes Spent Total Time Spent with Patient: Total time spent is greater than 50% in coordination of care (as documented) at patient's floor/unit and/or counseling patient: Coding Level of Care Code 24387 IN/OBS CONSULT LVL 4,60M Diagnoses Dysequilibrium R42 Bradycardia R00.1 Heart block AV second degree I44.1
--- NOTE | 2024-06-17 18:07 | History & Physical Report ---
Date of Service June 17, 2024 Assessment & Plan (1) Bradycardia: (2) Nausea & vomiting: (3) Hyperlipidemia: (4) Laryngopharyngeal reflux: (5) First degree AV block: (6) Heart block AV second degree: (7) Dysequilibrium: (8) Ambulatory dysfunction: Plan Symptomatic bradycardia/dysequilibrium - Meclizine 25mg given in ED for dizziness/dysequilibrium - No chest pain, troponin normal, no concern for myocardial ischemia - When taken to CT HR dropped into 20s - Patient reports that nausea and vomiting occurred after changing positions and feeling dizzy and off-balance - Cardiology consulted: Continuous cardiology monitoring overnight, keep pacer pads on Heart block AV second degree - EKG in ED:Sinus bradycardia rate of 53, first-degree AV block prolonged MO, normal axis T wave inversion in aVL no ST elevations. - History of 1st degree AV heart block, 2nd degree block seen on telemetry for approximately 2 min at 2pm coinciding with emesis - Potential that gastrointestinal symptoms caused vasovagal response and transie nt high degree heart block vs symptomatic bradycardia and dysequilibrium causing GI symptoms - continuous cardiac monitoring overnight - Potential transvenous pacing or pacemaker placement if conduction delay worsens Nausea/vomiting - Famotidine and Compazine given for symptomatic control - No nausea or vomiting since approximately 5pm 06/17 Laryngopharyngeal reflux - Well controlled with omeprazole 20mg PO QAM HLD - LDL chol: 121 Triglycerides: 149 February 2024 - Continue atorvastatin 10mg after d/c History of Present Illness Chief Complaint: Dizziness, headache, vomiting Primary Care Provider: Jaime Luna MD Petra Baez is a 83 y/o M with a past medical history of HLD, [place]cadia, laryngopharyngeal reflux, impaired fasting glucose, and sensorineural hearing loss arriving in the ED due to dizziness, nausea, and vomiting. Patient notes that he was working at his workbench in the basement around 12pm when he stood up and took a few steps and reports feeling wobbly, dizzy and unsteady on his feet. Patient reports that quickly after this he became nauseous and vomited 6-7 times between 12pm-5pm. Patient denies head trauma or any recent falls. Patient notes that he has feinted approximately 3 times in the past 20-30 years, once at hinduism, once while riding his bicycle and once at a business meeting, patient reports no head trauma or injury from these events. Patient reports that todays events feel different from these past episodes of feinting as he feels a lingering feeling dizziness. Patient currently denies headache, nausea, vomiting, abdominal pain, chest pain, palpitations, SOB, cough, wheeze or dizziness but feels that if he sits up or stands quickly the dizziness will come back. Patient also does not want to consume any food because he feels that his nausea and vomiting might reoccur. Patient denies changes in bowel habits, difficulty urinating, or blood in the stool, urine, or vomit. Patient denies prior stroke/TIA history or feelings of vertigo. Patient denies vision changes. Allergies Allergy/AdvReac Type Severity Reaction Status Date / Time Penicillins Allergy Unknown UNKNOWN Verified 04/07/24 14:38 Home Medications Medication Instructions Recorded Confirmed Type aspirin 81 mg tablet,delayed 81 mg PO QAM 11/22/20 06/17/24 History release (Adult Low Dose Aspirin) multivitamin 1 tab PO QAM 11/22/20 06/17/24 History omeprazole 20 mg capsule,delayed 20 mg PO QAM 11/22/20 06/17/24 History release atorvastatin 10 mg tablet (Lipitor) 10 mg PO QAM #90 tabs 06/04/24 06/17/24 Rx omega 3-tzh-xmf-fish oil 1,000 mg 1 cap PO QAM 06/17/24 06/17/24 History (120 mg-180 mg) capsule (Fish Oil) Past Med/Surg History Problem List (Updated 06/17/24 @ 21:13 by Suresh Pittman MD) Ambulatory dysfunction First degree AV block Nausea & vomiting (Acute) Dizziness (Acute) Heart block AV second degree (Acute) Dysequilibrium H/O right inguinal hernia repair (04/17/23) Right Open Inguinal Hernia Repair with Mesh(Right) - Chau Victor DO Hypertension stable per PCP; low sodium diet and pt monitoring BP Prediabetes pt monitoring diet; Ha1c 01/21/23: 5.6% Current use of proton pump inhibitor Inguinal hernia Inguinal bulge Pain, abdominal, RLQ Hernia Cerumen impaction Skin lesion Sensorineural hearing loss (SNHL) of left ear with restricted hearing of right ear Colon cancer screening Encounter for pre-operative examination Impaired fasting glucose (Acute) Laryngopharyngeal reflux (Acute) Bradycardia (Acute) runs 50s-60s per pt ; stable per PCP: 03/2023 EKG first degree AV block without changes Hyperlipidemia stable on statin per PCP Medical History Hx of syncope x 2 occurrences; most recent episdoe 11/2018; workup wnl per pt ([facility]), no current issues since 2019 Hearing loss "Age related" Hypertension Pt Denies - "never had a significantly high BP" Hyperlipidemia Bradycardia "Sometimes drops to 50's." Does not follow with cardio History of COVID-22 Mar 2022: mild. 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 pt declines neuro referral. 02/2022 doppler: Carotids <50% stenosis b/l ICA GERD (gastroesophageal reflux disease) stable on omeprazole Surgical History History of right cataract surgery History of left cataract surgery 02/25/24 Hx of right inguinal hernia repair 2022 History of tonsillectomy Youth History of appendectomy Youth History of colonoscopy 2020 Family History Father , age 63 Myocardial infarction Brother Melanoma Lung cancer Brother Lung cancer Other Family history non-contributory No family history of adverse response to anesthesia Denies family history of Ovarian cancer Prostate cancer Breast cancer Colorectal cancer Social History Smoking Status: Never smoker Second Hand Exposure: No; Do You Dip or Chew Tobacco: No; Hx Alcohol Use: Yes Alcohol type: beer and wine Alcohol Intake Frequency: 4 or More x per/Week Hx Substance Use: No Preferred Language: French Communication Ability: Effective Visual Impairment: No Limitations Hearing Ability: Normal 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 Beliefs That Will Affect Care: None marital status: Current Living Situation: Spouse current occupational status: retired How many Children do You have: 2 Other Information That Helps Us Care for You: No Feels Safe at Home: Yes Safety Concerns: Feels Safe At This Time Childhood Exposure to Second-Hand Smoke: Yes Diet: regular caffeine: Yes Dental Care, Regularly: Yes Physical Activity Frequency: Does not Exercise Seatbelt Use: always Sunscreen Use: No Assistive Devices: Glasses Physical Exam Physical Exam: General: patient resting comfortably, NAD, non-toxic in appearance, answers questions appropriately. Skin: warm, dry, intact HEENT: NC/AT, anicteric sclera, conjunctiva without injection, moist mucus membranes. Heart: +S1/S2, regular, no m/r/g Lungs: equal air entry bilaterally, no rales/rhonchi/wheezes Abd: +BS, soft, NT/ND Ext: warm, no clubbing/cyanosis or edema, Yue's neg. Neuro: nonfocal, speech intact, no facial droop, moving all extremities. Results & Data Results & Data Vital Signs (Past 12 Hours) Vital Signs Temp Pulse Pulse Resp BP BP Pulse Ox 06/17/24 17:00 43 L 16 196/82 H 98 06/17/24 16:24 43 L 22 95 06/17/24 16:12 42 L 15 95 06/17/24 16:06 46 L 10 L 96 06/17/24 16:00 157/71 H 06/17/24 15:18 42 L 15 95 06/17/24 15:09 47 L 18 165/74 H 96 06/17/24 15:06 47 L 16 96 06/17/24 15:00 165/74 H 06/17/24 14:57 47 L 16 96 06/17/24 14:56 53 L 96 06/17/24 14:51 60 16 96 06/17/24 14:45 189/89 H 06/17/24 14:44 74 06/17/24 14:43 231/95 H 06/17/24 14:40 25 L 06/17/24 14:39 45 L 15 96 06/17/24 14:36 46 L 17 96 06/17/24 14:30 173/80 H 06/17/24 14:29 47 L 06/17/24 14:23 36.2 C L 48 L 20 184/80 H 97 O2 Del Method 06/17/24 17:00 Room Air 06/17/24 16:24 06/17/24 16:12 06/17/24 16:06 Room Air 06/17/24 16:00 06/17/24 15:18 Room Air 06/17/24 15:09 Room Air 06/17/24 15:06 Room Air 06/17/24 15:00 06/17/24 14:57 Room Air 06/17/24 14:56 Room Air 06/17/24 14:51 Room Air 06/17/24 14:45 06/17/24 14:44 06/17/24 14:43 06/17/24 14:40 06/17/24 14:39 06/17/24 14:36 Room Air 06/17/24 14:30 06/17/24 14:29 06/17/24 14:23 Room Air Laboratory Results Abnormal lab results 06/17/24 Range/Units 14:30 Lymph # (Auto) 1.15 L (1.20-3.40) K/uL Glucose 184 H (70-99(Fasting)) mg/dl Diagnostic Findings Chest X-Ray 06/17/24 17:24 Clinical History: Presyncope Technique: 2 frontal views of the chest were obtained Comparison is made to the prior examination dated 11/23/2018 Findings: There are no confluent pulmonary infiltrates. The heart size is within normal limits. No pleural effusion or pneumothorax is seen. There is no definite pulmonary nodule. No fracture is noted. No foreign body is seen Impression: No active disease Electronically signed by Mars Fleming 06-17-2024 6:19 PM Code Status & VTE Plan VTE Prophylaxis Plan VTE Prophylaxis will be ordered: Yes Supervising Physician Co-Signing Physician Notes I personally saw and examined the patient. I independently reviewed the labs, EKG, imaging, problem list, medication list, past medical history and family history. I verified all kapadia points and agree with resident physician Dr Issac Jacinto DO with the following exceptions and/or additions: 83 year Resident Activity Tracking Resident Involvement: Resident Care Provided Care Provided: Adult Hospital Medicine
--- NOTE | 2024-06-17 18:19 | XRay Report ---
Clinical History: Presyncope Technique: 2 frontal views of the chest were obtained Comparison is made to the prior examination dated 11/23/2018 Findings: There are no confluent pulmonary infiltrates. The heart size is within normal limits. No pleural effusion or pneumothorax is seen. There is no definite pulmonary nodule. No fracture is noted. No foreign body is seen Impression: No active disease Electronically signed by Mars Fleming 06-17-2024 6:19 PM
[2024-06-18 07:53] VITALS: O2SAT 96
[2024-06-18] MEDS: ATORVASTATIN 10 MG TAB PO SCH (07:55)
[2024-06-18] MEDS: ASPIRIN 81 MG ECTAB PO SCH (07:55)
[2024-06-18] MEDS: PANTOprazole 40 MG TAB PO SCH (07:55)
--- NOTE | 2024-06-18 10:16 | Electrocardiogram Report ---
Test Reason : Blood Pressure : */* mmHG Vent. Rate : 43 BPM Atrial Rate : 43 BPM P-R Int : 304 ms QRS Dur : 98 ms QT Int : 460 ms P-R-T Axes : 76 -10 30 degrees QTcB Int : 388 ms Marked sinus bradycardia with 1st degree A-V block Abnormal ECG When compared with ECG of 17-Jun-2024 14:22, No significant change was found Confirmed by Jean Paul Mooney ([id number]) on 06/18/2024 10:16:27 AM Referred By: REFERRED SELF Confirmed By: Jean Paul Mooney
[2024-06-18 11:13] VITALS: RESP 20; TEMP 97.7
--- NOTE | 2024-06-18 12:49 | Electrocardiogram Report ---
Test Reason : Blood Pressure : */* mmHG Vent. Rate : 51 BPM Atrial Rate : 51 BPM P-R Int : 256 ms QRS Dur : 94 ms QT Int : 446 ms P-R-T Axes : 62 -7 46 degrees QTcB Int : 411 ms Sinus bradycardia with 1st degree A-V block Otherwise normal ECG When compared with ECG of 17-Jun-2024 17:30, No significant change was found Confirmed by Jean Paul Mooney ([id number]) on 06/18/2024 12:49:42 PM Referred By: REFERRED SELF Confirmed By: Jean Paul Mooney
--- NOTE | 2024-06-18 13:43 | Cardiology Progress Note ---
Date of Service June 18, 2024 Assessment & Plan (1) Dysequilibrium: (2) Bradycardia: (3) Heart block AV second degree: Plan Absence of further episodes of heart block/pauses suggests that his issue was not primary conduction disease but rather a vasovagal response to the nausea induced by his disequilibrium. 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 Perhaps labyrinthitis? Agree with meclizine. If he continues to ambulate without difficulty, could be discharged later today and placed on event monitor/MCOT for 30 days. He should pick this up at our office upon discharge (office aware, he should get there before 4 PM). I will arrange for cardiology follow-up with me in 4 to 5 weeks (when results of event monitor/MCOT available). Admission and Anticipated Discharge Date Admission Date: June 17, 2024 Subjective Feels much better today, denies any complaints at rest. Had him get up and walk about, his heart rate increased from 45 to 74 bpm and he noted no dyspnea, lightheadedness, or chest discomfort. He did feel very mild disequilibrium at the end of his walk, this dissipated quickly. Telemetry overnight showed consistent sinus bradycardia at 45 bpm with no further episodes of heart block/pauses. Physical Exam Physical Exam: No distress. BP normotensive. Pulse 45 bpm and regular. As noted, heart rate increased to 74 bpm upon walking. Respirations 20 but unlabored. Skin: no ecchymoses or generalized lesions. HEENT: unremarkable. Neck: JVP at the clavicle at 90 degrees, no carotid bruits. Lungs: clear. Cardiac: regular/bradycardic rhythm, normal S1-2, no murmur. Abdomen: benign. Extremities: no edema, pulses intact. Neurologic: normal affect and conversation, nonfocal. Results & Data Vital Signs (Past 12 Hours) Vital Signs Temp Pulse Pulse Resp BP BP Pulse Ox 06/18/24 11:12 97.7 F 69 20 126/80 96 06/18/24 07:52 98.8 F 54 L 18 119/67 96 06/18/24 07:14 48 L 06/18/24 04:34 97.9 F 52 L 20 135/68 94 O2 Del Method 06/18/24 11:12 Room Air 06/18/24 07:52 Room Air 06/18/24 07:14 11/15/24 04:34 Room Air PG Care Time/CCT Total # of Minutes Spent Total Time Spent with Patient: Total time spent is greater than 50% in coordination of care (as documented) at patient's floor/unit and/or counseling patient: Coding Level of Care Code 15255 SUB INP/OBS CARE 3/50MIN Diagnoses Dysequilibrium R42 Bradycardia R00.1 Heart block AV second degree I44.1
[2024-06-18 14:39] VITALS: BP 135/68; PULSE 69
--- NOTE | 2024-06-18 17:55 | Discharge Summary ---
Discharge Summary Date of Service June 18, 2024 Principal Dx & Hospital Course #1 = Principal Diagnosis (1) Bradycardia: 83-year-old man with longstanding resting bradycardia usually in the 50s and first-degree AV block who presented with nausea vomiting and disequilibrium, presyncopal episode and worsened bradycardia. he had a transient episode of second-degree AV block which lasted a few minutes and was associated with nausea and emesis. On further history he had onset of new disequilibrium yesterday with feeling off balance discoordinated and lightheaded with nausea and vomiting, though no overt vertigo. This symptom has virtually resolved. He has no history of similar symptoms in the past. He did not have any symptoms associated with changes in head position to suggest BPV. No new hearing loss or tinnitus to suggest Mnire's. No recent upper respiratory symptoms. today he is able to walk well, he had no associated neurological symptoms such as vision disturbance, face arm or leg weakness or numbness, speech disturbance. He has a history of an incidentally noted lacune on MRI in 2021. neurological exam is normal, he has a few beats of nystagmus when looking leftward. He was monitored on telemetry overnight and there were no further episodes of second-degree AV block or any other concerning arrhythmias. He had no further episodes of nausea or emesis. [employer] consulted and felt that the exa cerbation of bradycardia / AV block was related to increased vagal tone from nausea and emesis rather than the other way around. because of his resting bradycardia And first-degree AV block he may require a pacemaker someday but not at this point. Based on his symptomatology It seems most likely he has labyrinthitis/vestibulitis to account for his and nausea vomiting. a small cerebellar stroke is possible but I would not expect the symptoms to resolve so rapidly. Plan: - Safe for discharge home today - meclizine as needed, follow-up with primary care - ambulatory multi line claims adjuster was arranged, he picked it up just after discharge, he will follow-up with Dr. Mooney in 5 weeks for the results (2) Dysequilibrium: (3) Nausea & vomiting: (4) Hyperlipidemia: (5) Laryngopharyngeal reflux: (6) First degree AV block: (7) Heart block AV second degree: transient and likely vagally mediated as discussed above Admission HPI Per Admitting Provider Petra Nestor is a 83 y/o M with a past medical history of HLD, [place], laryngopharyngeal reflux, impaired fasting glucose, and sensorineural hearing loss arriving in the ED due to dizziness, nausea, and vomiting. Patient notes that he was working at his workbench in the basement around 12pm when he stood up and took a few steps and reports feeling wobbly, dizzy and unsteady on his feet. Patient reports that quickly after this he became nauseous and vomited 6-7 times between 12pm-5pm. Patient denies head trauma or any recent falls. Patient notes that he has feinted approximately 3 times in the past 20-30 years, once at islam, once while riding his bicycle and once at a business meeting, patient reports no head trauma or injury from these events. Patient reports that todays events feel different from these past episodes of feinting as he feels a lingering feeling dizziness. Patient currently denies headache, nausea, vomiting, abdominal pain, chest pain, palpitations, SOB, cough, wheeze or dizziness but feels that if he sits up or stands quickly the dizziness will come back. Patient also does not want to consume any food because he feels that his nausea and vomiting might reoccur. Patient denies changes in bowel habits, difficulty urinating, or blood in the stool, urine, or vomit. Patient denies p rior stroke/TIA history or feelings of vertigo. Patient denies vision changes. Discharge Exam PHYSICAL EXAMINATION Last 24h vital signs reviewed, see documentation in flowsheet General: comfortable appearing, no distress HEENT: Normocephalic, atraumatic, pupils round and equal, sclerae anicteric, no conjunctival injection, moist mucus membranes Lungs: Normal respiratory effort. Clear to auscultation bilaterally. No RRW Heart: Regular rate and rhythm, no murmurs. No JVD Abdomen: Soft, nontender, nondistended. Bowel sounds present. Extremities: Warm, dry, well-perfused. No extremity edema. 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 paresis, PERRL, EOMI, few beats of nystagmus when looking leftward, no nystagmus looking upward or to the right, upper and lower EXTR extremity strength 5 out of 5, walks well without ataxia Psych: Normal affect and behavior Discharge Plan Discharge Items Patient Disposition: Home - Self-Care Reason For Visit: PRESYNCOPE, SYMPTOMATIC BRADYCARDIA Discharge Diagnosis: dysequilibrium possible labrynthitis, symptomatic bradycardia Activity: Resume your previous activity Non-emergency contact: Primary Care Provider and [employer] Call non-emergency contact if: you have any medication questions and your symptoms worsen Follow-up/Referrals: Jean Paul Mooney MD [Physician] - Pro,Jaime Whitman MD [Primary Care Provider] - 06/25/24 10:30 am Diet: Regular Addtl Attending Provider Instructions: You had an episode of low heart rate (bradycardia). We think this was triggered by nausea and dysequilibrium, probably from labrynthitis. This is inflammation of the nerve that connects to the inner ear and is involved with balance. Its often triggered by a viral infection and typically improves on its own over several days to weeks. You can take meclizine (antivert) 25 mg every 8 hours as needed for dysequilibrium or vertigo. This can cause drowsiness. Do not drive after taking this medication or if you feel unsteady. Follow up with your primary care provider. If the issue persists you may need referral to ENT. You already have a low resting heart rate that was aggravated. If you have symptoms of nausea/vomiting or lightheadedness its safest to lie down right away to prevent falling, until the episode passes. Dr Mooney recommended an ambulatory multi line claims adjuster to track your heart rate and rhythm for longer. Pick this up at the cardiology front line leader today by 4pm when they close. Follow up with Dr. Mooney in 4 to 5 weeks when the results will be available. It was a pleasure taking care of you in the hospital, Sandra Merchant MD Pending Studies at Discharge: No Stand-Alone Forms: [facility], Smoking Cessation Medications and DC Order Prescriptions: New meclizine 25 mg tablet 25 mg PO TID PRN (Reason: dizziness) Qty: 30 0RF Continued atorvastatin [Lipitor] 10 mg tablet 10 mg PO QAM Qty: 90 3RF multivitamin Tablet 1 tab PO QAM aspirin [Adult Low Dose Aspirin] 81 mg tablet,delayed release (DR/EC) 81 mg PO QAM omeprazole 20 mg capsule,delayed release(DR/EC) 20 mg PO QAM omega 5-djj-ffi-fish oil [Fish Oil] 1,000 (120-180) mg Capsule 1 cap PO QAM Discharge Orders: Discharge Order (Routine); Ordered 06/18/24 Ordered By: Sandra Merchant Admission Data Admit Date/Time: 06/17/24 17:38 Attending Provider: Sandra Merchant Admit Provider: Shan Thomas Primary Care Provider: Jaime Luna Other Providers: Jean Paul Mooney; Shan Thomas Other Interventions: Discharge Summary Assessment (RN) Last Done: 06/18/24 14:39 Hospital Stay Data Consultations 06/17/24 15:59 Consult Cardiology Stat ED Decision to Admit Stat Pending Results Patient Have Any Pending Studies at Discharge: No Discharge Instructions Given to Patient (Per Discharging Provider) You had an episode of low heart rate (bradycardia). We think this was triggered by nausea and dysequilibrium, probably from labrynthitis. This is inflammation of the nerve that connects to the inner ear and is involved with balance. Its often triggered by a viral infection and typically improves on its own over several days to weeks. You can take meclizine (antivert) 25 mg every 8 hours as needed for dysequilibrium or vertigo. This can cause drowsiness. Do not drive after taking this medication or if you feel unsteady. Follow up with your primary care provider. If the issue persists you may need referral to ENT. You already have a low resting heart rate that was aggravated. If you have symptoms of nausea/vomiting or lightheadedness its safest to lie down right away to prevent falling, until the episode passes. Dr Mooney recommended an am bulatory multi line claims adjuster to track your heart rate and rhythm for longer. Pick this up at the cardiology front line leader today by 4pm when they close. Follow up with Dr. Mooney in 4 to 5 weeks when the results will be available. It was a pleasure taking care of you in the hospital, Sandra Merchant MD Total Time Total Time Spent Total Time Spent (In Minutes): I personally spent: 40 minutes today on clinical care activities including: reviewing chart notes and vital signs reviewing labs reviewing studies discussion with immigration specialist discussion with home care nurse examining and counseling the patient counseling the patient's family writing prescriptions, discharge instructions documentation Coding Level of Care Code 21066 INP/OBS DISCH >30 MIN Diagnoses Bradycardia R00.1 Dysequilibrium R42 Nausea & vomiting R11.2 Vomiting type: unspecified Hyperlipidemia E78.5 Laryngopharyngeal reflux K21.9 First degree AV block I44.0 Heart block AV second degree I44.1
--- NOTE | 2024-06-21 16:51 | Electrocardiogram Report ---
Test Reason : Blood Pressure : */* mmHG Vent. Rate : 53 BPM Atrial Rate : 53 BPM P-R Int : 262 ms QRS Dur : 104 ms QT Int : 440 ms P-R-T Axes : 86 27 77 degrees QTcB Int : 412 ms Sinus bradycardia with sinus arrhythmia with 1st degree A-V block Otherwise normal ECG When compared with ECG of 25-Mar-2023 11:48, No significant change was found Confirmed by Moises Calle ([id number]) on 06/21/2024 4:50:39 PM Referred By: REFERRED SELF Confirmed By: Moises Calle
== END 2024-06-18 15:18 | disposition home or self-care (01) ==
LOC: ED 14:17 → INTOOBSV 17:38 → 2N 17:38 → SUATTDRO 17:38 → 2N 21:14